=== PATIENT | female | born 1970 | race Caucasian/White ===

== ENCOUNTER 2023-08-06 12:33 | Outpatient (OUT) | payer OTHER, SELFPAY ==
--- NOTE | 2023-08-06 12:51 | VEIN_ITS ---
[address] [address] Patient Name: RONNI FIELDS MRN: [id number] date: 1970 Sex: F Assigned Patient Location: Current Patient Location: Accession/Order Number: [id number] Exam Date: 08/06/2023 12:55 Report Date: 08/06/2023 14:17 At the request of: DEBI BALDERAS Procedure: VC Endovenous Ablation 1VeinRT EXAMINATION: VC Endovenous Ablation 1VeinRT HISTORY: I83.813 Painful varicose veins of bilat lower extremities The risks and benefits of the procedure had been previously discussed, and were rediscussed at length. Informed written consent was obtained. Giuseppe Fowler RN and Melissa Alfaro RDMS assisted. Time out procedure was performed. The right lower extremity was prepared and draped in the usual sterile fashion to allow knee flexion in the sterile field. Duplex ultrasound probe was draped in a sterile cover, sterile transmission gel was used. Venous mapping was performed with the areas of dilation and large tributaries marked. The total length was 63 cm from the entry 3 cm above the ankle to 3 cm below the Saphenofemoral junction. The diameter of the right great saphenous vein ranged from 7.5 mm. A 30 gauge needle and 1% buffered lidocaine was used to anesthetize the entry site. A 4 mm incision was made with a scalpel and the saphenous vein was entered percutaneously under direct ultrasound guidance with a micropuncture set, a single stick was successful in gaining access. A micro-guide wire was inserted and the needle removed. A micro-set including a dilator was inserted over the microwire and the needle and dilator were removed. A guide wire was inserted through the micro-set and guided through the saphenous vein to the saphenofemoral junction. The dilator was removed and an introducer sheath was inserted over the wire until the end of the sheath entered the saphenofemoral junction. The dilator and wire were removed and the 600 micron fiber was introduced and placed and positioned so that it extended beyond the sheath and was 3 cm distal to the saphenofemoral or saphenopopliteal junction. Final position of the fiber was determined by ultrasound guidance and duplex imaging. Tumescent anesthetic was delivered by ultrasound guidance. 275 cc of fluid was delivered along the entire course of the saphenous vein. The solution consisted of 1000 cc of normal saline with 40 mL of 1% lidocaine and 20 mL of sodium bicarbonate. A final positioning check was made. The energy source was turned on by means of the foot pedal and the fiber and sheath were withdrawn. The total number of Joules delivered was 3181. The laser was active for 398 seconds under continuous pulse, average laser use of 8 J. Laser start time 1:51 PM, 08/06/2023. Laser stop time 1:59 PM, 08/06/2023. A duplex ultrasound revealed compressibility and flow at the saphenofemoral junction immediately after the procedure. Hemostasis at the access site was achieved. The skin incision of the saphenous vein was closed with a 4 x 4. A compression stocking was applied. Postop instructions were given. A follow up appointment was recommended and scheduled. The patient tolerated the procedure well. Electronically authenticated by: LEXI ARCINIEGA Date: 08/06/2023 14:17
[2023-08-06] MEDS: LIDOCAINE HCL 1% 100 MG/10 ML MDV INJ (12:58)
[2023-08-06] MEDS: 0.9 % SODIUM CHLORIDE 500 ML, LIDOCAINE HCL 20 ML, SODIUM BICARBONATE 10 MEQ INJ (12:58)
== END 2023-08-06 12:34 | disposition home or self-care (01) ==
LOC: VC 12:34
PROVIDERS: PCP Radiology Diagnostic Radiology; Visit Provider Radiology Diagnostic Radiology
DX: I83.813 Varicose veins of bilateral lower extremities with pain (principal)
CPT/HCPCS: 36478

== ENCOUNTER 2023-08-10 11:02 | Outpatient (OUT) | payer OTHER, SELFPAY ==
--- NOTE | 2023-08-10 11:03 | VEIN_ITS ---
Patient: RONNI FIELDS Exam Date: 08/10/2023 : 1970 Gender:F Ordering : DR DEBI BALDERAS M.D. Admission #: [id number] Family : Order #: [id number] CLICK HERE TO VIEW EXAM RADIOLOGY REPORT PROCEDURE: FACILITY EST [facility]D [facility] - OFFICE VISIT FOLLOW UP COMPARISON: None. PROGRESS NOTES: The patient reports improvement in leg symptoms. There has been interval reduction in varicosities. The patient has followed our recommendations to walk 20-30 minutes once or twice per day since the procedure. Physical exam demonstrates decrease in varicosities of the leg. Persistent varicosities are identified along the legs bilaterally. Review of the ultrasound performed the same day demonstrates occlusive thrombus extending throughout the treated vein(s), see separate report, consistent with a successful ablation. No thrombus extending into or beyond the saphenofemoral junction. The patient expressed a desire to proceed with treatment of remaining incompetent varicosities. The patient was informed that treatment was a process and would require several procedures/sessions. VEIN/ Facility EST LMTD IMPRESSION: 1. Successful ablation of the right great saphenous vein(s). 2. Persistent varicose veins and lower extremity symptoms. PLAN: 1. Endovenous laser ablation of left great saphenous vein. Nurse notes, history and physical were reviewed and confirmed, see attached forms. The nurse was present throughout the physical exam and consultation Dictated by: Logan Ronquillo M.D. on 08/10/2023 at 11:32 Approved by: Logan Ronquillo M.D. on 08/10/2023 at 11:33
--- NOTE | 2023-08-10 11:04 | VEIN_ITS ---
Patient: RONNI FIELDS Exam Date: 08/10/2023 : 1970 Gender:F Ordering : DR DEBI BALDERAS M.D. Admission #: [id number] Family : Order #: [id number] CLICK HERE TO VIEW EXAM RADIOLOGY REPORT PROCEDURE: VC EXT VENOUS RT LMTD COMPARISON: None. INDICATIONS: Phlebitis of superficial vein of rt lower extremity I80.01 TECHNIQUE: Lower extremity starr scale and Duplex Doppler evaluation of the deep venous system from the inguinal ligament through the calf veins. FINDINGS: REGION: Right lower extremity. THROMBI: Negative for DVT. Heat induced thrombus 1.8cm from the SFJ. The thrombus extends from groin to distal calf. COMPRESSIBILITY: Non-compressible segments. FLOW: Areas of no flow. OTHER: CONCLUSION: 1. Successful post ablation occlusion of right great saphenous vein. Dictated by: Logan Ronquillo M.D. on 08/10/2023 at 11:32 Approved by: Logan Ronquillo M.D. on 08/10/2023 at 11:32
== END 2023-08-10 11:03 | disposition home or self-care (01) ==
LOC: VC 11:02
PROVIDERS: PCP Radiology Diagnostic Radiology; Visit Provider Radiology Diagnostic Radiology
DX: I80.01 Phlebitis and thrombophlebitis of superficial vessels of right lower extremity (principal)
CPT/HCPCS: 93971; G0463